=== PATIENT | female | born 1995 | race Caucasian/White ===

== ENCOUNTER 2016-12-29 18:03 | Emergency (ER) | payer SELFPAY ==
[~2016-12-29] VITALS: Ht 165.1 cm; Wt 65.8 kg
[2016-12-29 18:10] VITALS: BP_SYST 140
--- NOTE | 2016-12-29 18:15 | NUR ---
Pt placed to ER waiting room in stable condition.
--- NOTE | 2016-12-29 19:46 | NUR ---
Placed in room 06 . Placed on travel clerk, blood pressure machine and pulse oximeter. To gown for exam. Side rails up. Report given to SALONI Bradley.
--- NOTE | 2016-12-29 19:47 | NUR ---
Patient AAO x 4 sitting in bed, c/o diarrhea x 10 days after a trip to [place]. Denies Nausea and vomiting. No acute distress noted. Vital signs WNL. Will continue to monitor.
--- NOTE | 2016-12-29 20:00 | NUR ---
SAMIR VALERIO at bedside examining patient.
[2016-12-29 20:20] VITALS: BP_SYST 120
--- NOTE | 2016-12-29 20:20 | NUR ---
Patient given written and verbal discharge instructions and verbalizes understanding. ER MD discussed with patient the results and treatment provided. Patient in stable condition. ID arm band removed. Rx of Cipro and Bentyl given. Patient educated on pain management and to follow up with PMD. Pain Scale 0/10 . Opportunity for questions provided and answered.
[2016-12-29 20:26] LABS: BILIRUBIN,URINE NEGATIVE (NEGATIVE); BLOOD, URINE NEGATIVE (NEGATIVE); CLARITY/URINE SL HAZY (CLEAR); COLOR,URINE YELLOW (YELLOW); GLUCOSE,URINE NEGATIVE (NEGATIVE); KETONES,URINE NEGATIVE (NEGATIVE); LEUKOCYTE ESTERASE ,URINE NEGATIVE (NEGATIVE); NITRITE, URINE NEGATIVE (NEGATIVE); PROTEIN URINE NEGATIVE (NEGATIVE); UROBILINOGEN,URINE 0.2 (0.2-1.0)
== END 2016-12-29 20:20 | disposition home or self-care (01) ==
LOC: SED 18:03
DX: R19.7 Diarrhea, unspecified (principal)
CPT/HCPCS: 81003; 81025; 99283

== ENCOUNTER 2022-08-06 13:30 | Emergency (ER) | payer BC, OTHER ==
[~2022-08-06] VITALS: Ht 160 cm; Wt 68.0 kg
[2022-08-06 13:46] VITALS: BP_SYST 134
--- NOTE | 2022-08-06 13:50 | NUR ---
PT CAME IN TO ED FROM HOME. AOX4 . CHIEF COMPLAINT OF DIARRHEA SINCE TUESDAY. PT STATES SHES HAD CRAMPS, FEVER, NAUSEA AND DIARRHEA SINCE , AND NOTED RED/ BROWN BLOOD IN STOOL TODAY. 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 DENIES VOMITING. NO SOB OR RESPIRATORY DISTRESS NOTED. AFEBRILE AT THIS TIME. DENIES PAST MEDICAL HISTORY STATED SHE WENT TO URGENT CARE YESTERDAY.
[2022-08-06 14:11] LABS: BASOPHILS % (AUTO) 0.1 % (0.0-2.0); HEMATOCRIT 41.2 % (36-48); HEMOGLOBIN 13.8 g/dL (12.0-16.0); LYMPHOCYTES # (AUTO) 0.7 K/uL (1.0-5.5); LYMPHOCYTES % (AUTO) 8.4 % (20.5-51.5); MEAN CORPUSCULAR HEMOGLOBIN 29 pg (27-31); MEAN CORPUSCULAR HGB CONC 33 % (32-36); MEAN CORPUSCULAR VOLUME 86 fL (79.0-98.0); MONOCYTES # (AUTO) 0.2 K/uL (0.0-1.0); MONOCYTES % (AUTO) 2.5 % (1.7-9.3); NEUTROPHILS # (AUTO) 7.9 K/uL (1.8-7.7); RED BLOOD CELL COUNT(AUTO) 4.82 MIL/uL (4.2-6.2); RED CELL DISTRIBUTION WIDTH 13.8 % (9.0-15.0); WHITE BLOOD COUNT (AUTO) 8.9 K/uL (4.8-10.8)
--- NOTE | 2022-08-06 14:22 | NUR ---
ER at bedside examining patient.
[2022-08-06 14:30] LABS: PLATELET COUNT (AUTO) 203 K/uL (130-430)
[2022-08-06 15:12] LABS: BILIRUBIN,URINE NEGATIVE (NEGATIVE); CLARITY/URINE CLEAR (CLEAR); COLOR,URINE YELLOW (YELLOW); GLUCOSE,URINE NEGATIVE (NEGATIVE); KETONES,URINE NEGATIVE (NEGATIVE); LEUKOCYTE ESTERASE ,URINE NEGATIVE (NEGATIVE); NITRITE, URINE NEGATIVE (NEGATIVE); PH,URINE 6.5 (5.0-8.0); PROTEIN URINE NEGATIVE (NEGATIVE); UROBILINOGEN,URINE 0.2 (0.2-1.0)
[2022-08-06 15:17] LABS: BLOOD, URINE TRACE (NEGATIVE)
[2022-08-06 15:22] LABS: BACTERIA,URINE FEW /HPF (None Seen); MUCUS,URINE None Seen /LPF (None Seen); RBC,URINE NONE SEEN /HPF (0-3); WBC,URINE 0-3 /HPF (0-3)
[2022-08-06 16:21] LABS: INR 1.1 (0.8-1.2); PROTHROMBIN TIME 11.1 SECS (9.5-12.5)
[2022-08-06 16:37] LABS: ALBUMIN 3.9 g/dL (3.4-4.8); C-REACTIVE PROTEIN QUANT 35.2 mg/dL (0-0.5); CALCIUM 9.1 mg/dL (8.4-11.0); CREATININE 0.81 mg/dL (0.55-1.30); TOTAL BILIRUBIN 0.3 mg/dL (0.0-1.0)
--- NOTE | 2022-08-06 17:23 | NUR ---
Patient given written and verbal discharge instructions and verbalizes understanding. ER MD discussed with patient the results and treatment provided. Patient in stable condition. ID arm band removed. Patient educated on pain management and to follow up with PMD. Opportunity for questions provided and answered. Medication side effect fact sheet provided.
[2022-08-06 17:24] VITALS: BP_SYST 128
== END 2022-08-06 17:23 | disposition home or self-care (01) ==
LOC: SED 13:30
DX: 000.000 (principal); K52.9 Noninfective gastroenteritis and colitis, unspecified; R10.33 Periumbilical pain; Z79.899 Other long term (current) drug therapy
CPT/HCPCS: 36415; 76376; 80053; 81000; 81025; 82150; 83605; 83615; 83690; 85025; 85610-TC; 85730-TC; 86140; 99284